=== PATIENT | female | born 1965 | race Caucasian/White ===

== ENCOUNTER 2016-12-22 22:10 | Emergency (ER) | payer OTHER | END 2016-12-23 01:06 | disposition home or self-care (01) | LOC: ER 22:10 | DX: R05 Cough (principal); K21.9 Gastro-esophageal reflux disease without esophagitis; F17.210 Nicotine dependence, cigarettes, uncomplicated; Z90.711 Acquired absence of uterus with remaining cervical stump; Z79.899 Other long term (current) drug therapy; Z88.6 Allergy status to analgesic agent | CPT/HCPCS: 87502; 87651 ==